=== PATIENT | female | born 1995 | race Caucasian/White ===

== ENCOUNTER → 2020-08-27 08:21 | Outpatient (CLI) | payer OTHER, SELFPAY ==
--- NOTE | 2020-08-27 08:25 | DI.US.S_ITS ---
PROCEDURE: US OB LIMITED INDICATIONS: Dates OUTSIDE/PRIOR DATING DATA: Last menstrual period (LMP): 05/30/20 . LMP-based estimated date of delivery (BROOKE): 03/06/21 First dating scan (date and location): 08/27/20 Estimated date of delivery (BROOKE) from first dating scan: 02/24/21 TECHNIQUE: Real-time scanning was performed of the fetus, with image documentation and biometric measurements. Endovaginal scanning: Not performed COMPARISON: None. FINDINGS: General: A single living intrauterine gestation is present. Presentation: Transverse, head maternal left. Placenta: Placental position is anterior , and there is marginal placental previa. heart rate: 160 beats per minute. biometrics: Biparietal diameter: 2.6 cm, 14 weeks 3 days Head circumference: 9.6 cm, 14 weeks 3 days Abdominal circumference: 8.1 cm, 14 weeks 3 days Femur length: 1.2 cm, 13 weeks 3 days Estimated gestational age from initial scan: not applicable. Composite gestational age from present scan: 14 weeks 1 day Measurement variability for biometric dating: +/- 7 days from 14 weeks to 15 weeks 6 days gestation, +/- 10 days from 16 weeks to 21 weeks 6 days gestation, +/- 2 weeks from 22 weeks to 27 weeks 6 days gestation, +/- 3 weeks for 28 weeks gestation or later. weight reference: 4500 g or EFW >90/95% is considered macrosomia or large for gestational age. EFW <10% is small for gestational age. EFW 5% or less is considered intra-uterine growth restriction. Other: Lateral ventricles appear prominent measuring 8.5 mm, although technically unclear significance. Recommend follow-up on 20 week anatomy survey ultrasound examination. IMPRESSION: Single living intrauterine fetus in transverse presentation. Gestational age of 14 weeks and 1 day by today's ultrasound measurements, ultrasound BROOKE of 02/24/21 which was concordant with the reported LMP. Marginal placenta previa. Recommend follow-up Dictated by: David Washington M.D. on 08/27/2020 at 9:36 Approved by: David Washington M.D. on 08/27/2020 at 9:42
[2020-08-27 13:29] LABS: Add Manual Diff / Slide Review NO; Basophils Absolute Auto 0 /uL (0-100); Basophils Percent Auto 0.2 % (0-2); Eosinophils Absolute Auto 0 /uL (0-450); Eosinophils Percent Auto 0.6 % (2-4); Hemoglobin 11.7 g/dL (12.0-16.0); Lymphocytes Absolute Auto 1300 /uL (1100-4500); Lymphocytes Percent Auto 21.6 % (25-40); Mean Corpuscular HGB Conc 34.4 % (30-36); Mean Corpuscular Hemoglobin 28.9 PG (26-34); Mean Corpuscular Volume 84.2 fL (80-100); Monocytes Absolute Auto 700 /uL (0-900); Monocytes Percent Auto 11.1 % (3-14); Neutrophils Absolute Auto 4100 /uL (1500-7000); Neutrophils Percent Auto 66.5 % (50-75); Platelet Count 223 X10^3/uL (150-400); Red Blood Cell Count 4.03 X10^6/uL (4.0-5.2); Red Cell Distribution Width 15.4 % (11.6-14.8); White Blood Cell Count 6.2 X10^3/uL (4.5-11.0)
[2020-08-27 13:37] LABS: Appearance Urine UA CLEAR; Bilirubin Urine UA NEGATIVE (NEGATIVE); Color Urine UA YELLOW; Glucose Urine UA NEGATIVE (Negative); Ketones Urine UA NEGATIVE (NEGATIVE); Leukocyte Esterase Urine UA NEGATIVE (NEGATIVE); Nitrite Urine UA NEGATIVE (Negative); Occult Blood Urine UA NEGATIVE (Negative); Protein Urine UA NEGATIVE (Negative)
[2020-08-27 13:40] LABS: pH Urine UA 7.5 (4.5-8.0)
[2020-08-27 15:50] LABS: Hepatitis B Surface Antigen NEGATIVE s/c (NEGATIVE)
[2020-08-27 16:04] LABS: HIV 1 & 2 Ab/Ag 4th Gen Combo NEGATIVE (NEGATIVE); Hep C Virus Ab w/Reflex Quant NEGATIVE s/c (NEGATIVE)
[2020-08-28 06:36] LABS: RPR Screen Non Reactive (Non Reactive)
[2020-08-28 08:12] LABS: Varicella IgG Antibody <135 index (Immune >165)
[2020-08-29 00:07] LABS: Chlamydia trachomatis NAA Negative (Negative); Neisseria gonorrhoeae NAA Negative (Negative)
== END ==
PROVIDERS: Referring Provider Family Medicine; Visit Provider Family Medicine
DX: Z34.82 Encounter for supervision of other normal pregnancy, second trimester (principal); Z3A.14 14 weeks gestation of pregnancy
CPT/HCPCS: 36415; 76815; 80055; 81003; 86787; 86803; 86850; 86900; 86901; 87086; 87389; 87491; 87591

== ENCOUNTER → 2020-09-28 09:09 | Outpatient (CLI) | payer OTHER, SELFPAY ==
[2020-09-30 18:39] LABS: AFP, Serum 118.8 ng/mL (.); Calc Gestational Age Ultrasound (.); Estriol, Free 1.09 ng/mL (.); Inhibin A, Dimeric 144.72 pg/mL (.); Inhibin A, MoM 0.84 (.); Maternal Ethnicity Caucasian (.); Maternal Weight 136 lbs (.); Number of Fetuses No (.); OSBR Risk 1 IN 453 (.); Results Report (.); Test Results *Screen Negative* (.); hCG, MoM 1.24 (.); hCG, Serum 34839 mIU/mL (.)
== END ==
PROVIDERS: Referring Provider Family Medicine; Visit Provider Family Medicine
DX: Z34.82 Encounter for supervision of other normal pregnancy, second trimester (principal); Z3A.18 18 weeks gestation of pregnancy
CPT/HCPCS: 36415; 82105; 82677; 84702; 86336

== ENCOUNTER → 2020-11-02 11:57 | Outpatient (CLI) | payer OTHER, SELFPAY ==
--- NOTE | 2020-11-02 11:58 | DI.US.S_ITS ---
PROCEDURE: US OB >= 14 WEEKS FETUS INDICATIONS: ANATOMIC SURVEY OUTSIDE/PRIOR DATING DATA: Last menstrual period (LMP): 05/30/2020 LMP-based estimated date of delivery (BROOKE): 03/06/2021 First dating scan (date and location): [facility], 08/27/2020 Estimated date of delivery (BROOKE) from first dating scan: 02/24/2021. TECHNIQUE: Real-time scanning was performed of the fetus, with image documentation and biometric measurements. COMPARISON: [facility], OB LIMITED, 08/27/2020, 8:34. FINDINGS: General: A single live intrauterine gestation is present. Presentation: Transverse. Placenta: Placental position is anterior , without previa. Amniotic fluid index: 18.9 cm, normal range is 5-24 cm. heart rate: 139 beats per minute. Maternal cervical canal: 3.1 cm long. Normal lower limit is 2.5 cm. biometrics: Biparietal diameter: 6 cm equals 24 weeks 3 days Head circumference: 22.5 cm equals 24 weeks 4 days Abdominal circumference: 18.8 cm equals 23 weeks 4 days Femur length: 4 cm equals 22 weeks 6 days Estimated gestational age from initial scan: 23 weeks 5 days Composite gestational age from present scan: 23 weeks 6 days Estimated weight and percentile: 591 g, 28th percentile Measurement variability for biometric dating: +/- 7 days from 14 weeks to 15 weeks 6 days gestation, +/- 10 days from 16 weeks to 21 weeks 6 days gestation, +/- 2 weeks from 22 weeks to 27 weeks 6 days gestation, +/- 3 weeks for 28 weeks gestation or later. weight reference: 4500 g or EFW >90/95% is considered macrosomia or large for gestational age. EFW <10% is small for gestational age. EFW 5% or less is considered intra-uterine growth restriction. Anatomic survey: Neuro: Ventricles are non-dilated at less than 10 mm. Cisterna magna is normal at 3-11 mm. Cerebellum is normal in size and morphology. Nuchal skin fold: Normal at less than 6 mm between 14-21 weeks gestational age. Face: Nose and lips, facial profile are normal. Spine: No evidence for spina bifida. Heart: 4-chambered heart is present, with normal ventricular outflow tracts. Diaphragm: Diaphragm is intact. Stomach: Left-sided stomach is present. Kidneys: No hydronephrosis. Normal is less than 5 mm in 2nd trimester, less than 7 mm in 3rd trimester. Cord: 3-vessel cord has orthotopic insertion. Bladder: Normal in size. Extremities: All 4 extremities identified. IMPRESSION: A single live intrauterine is seen. No anatomic abnormalities are identified. Normal interval growth when compared to the prior ultrasound examination. Dictated by: Maurisio Almanza M.D. on 11/02/2020 at 15:13 Approved by: Maurisio Almanza M.D. on 11/02/2020 at 15:16
== END ==
PROVIDERS: PCP Family Medicine; Referring Provider Family Medicine; Visit Provider Family Medicine
DX: Z34.82 Encounter for supervision of other normal pregnancy, second trimester (principal); Z3A.23 23 weeks gestation of pregnancy
CPT/HCPCS: 76811

== ENCOUNTER → 2020-12-04 08:57 | Outpatient (CLI) | payer OTHER, SELFPAY ==
[2020-12-04 10:19] LABS: Hematocrit 29.1 % (36-46); Hemoglobin 9.5 g/dL (12.0-16.0)
[2020-12-04 10:45] LABS: GTT (PREG) 1 Hour PP 50gm Dose 105 mg/dL (76-139)
== END ==
PROVIDERS: PCP Family Medicine; Referring Provider Family Medicine; Visit Provider Family Medicine
DX: Z34.82 Encounter for supervision of other normal pregnancy, second trimester (principal); Z3A.24 24 weeks gestation of pregnancy
CPT/HCPCS: 36415; 82950; 85014; 85018; 86850

== ENCOUNTER → 2021-01-28 09:17 | Outpatient (CLI) | payer OTHER, SELFPAY ==
[2021-01-29 08:22] LABS: Strep Grp B PCR NEG for Grp B Strep
== END ==
PROVIDERS: PCP Family Medicine; Visit Provider Family Medicine
DX: Z34.83 Encounter for supervision of other normal pregnancy, third trimester (principal); Z3A.36 36 weeks gestation of pregnancy
CPT/HCPCS: 87653

== ENCOUNTER 2021-02-13 04:08 | Inpatient (IN) | payer OTHER, SELFPAY ==
[2021-02-13 05:24] VITALS: BP 121/59
[2021-02-13 06:35] LABS: COVID19 - ADMIT (NP swab/PCR) Negative (Negative)
[2021-02-13 06:54] LABS: Add Manual Diff / Slide Review NO; Basophils Absolute Auto 0 /uL (0-100); Basophils Percent Auto 0.3 % (0-2); Eosinophils Absolute Auto 0 /uL (0-450); Eosinophils Percent Auto 0.2 % (2-4); Hematocrit 33.7 % (36-46); Hemoglobin 11.2 g/dL (12.0-16.0); Lymphocytes Absolute Auto 1800 /uL (1100-4500); Lymphocytes Percent Auto 22.9 % (25-40); Mean Corpuscular HGB Conc 33.1 % (30-36); Mean Corpuscular Hemoglobin 25.9 PG (26-34); Mean Corpuscular Volume 78.3 fL (80-100); Monocytes Absolute Auto 900 /uL (0-900); Monocytes Percent Auto 10.9 % (3-14); Neutrophils Absolute Auto 5300 /uL (1500-7000); Neutrophils Percent Auto 65.7 % (50-75); Platelet Count 222 X10^3/uL (150-400); Red Cell Distribution Width 16.5 % (11.6-14.8); White Blood Cell Count 8.1 X10^3/uL (4.5-11.0)
--- NOTE | 2021-02-13 07:56 | PM.OBHP.1 ---
OB HPI Date/Time Date of admission: 02/13/21 Date Patient Seen: 02/13/21 Time Patient Seen: 07:57 History of Present Condition Chief complaint: MATERNITY Narrative: Lionel Butler is a 25 year old at 38w3d with BROOKE of 02/24/21 per first trimester ultrasound. She presents with active labor. Contractions started this morning at approximately 1:30 a.m., irregular. At approximately 3:00 a.m., contractions were 5 minutes apart and she presented for labor check 2 hours later. She was tanya every 2-3 minutes at that time. 30 minutes ago, received epidural and is now comfortable, contractions have spaced out a bit. Her course has been complicated by iron deficiency anemia treated with ferrous gluconate 324 mg p.o. daily. She is Rh negative and received RhoGAM at 28 weeks. Reports that she received RhoGAM with her last as well. Antibody was negative on 08/27/2020 and 12/04/2020. Admission labs reveal a positive antibody today, Anti-D. LABS/IMAGING: ABO A negative, antibody negative on 08/27/2020, 12/04/2020; positive today. Rubella non-immune. Hepatitis-B surface antigen negative. HIV, HSV 1 and 2 negative. GC/chlamydia negative. VDRL negative. Varicella titer non-immune. Pap smear 2017, within normal limits per patient. Urine culture negative on 08/27/20. Hemoglobin/hematocrit 11.7/34.0 on 08/27/20. Repeat hemoglobin/hematocrit 9.5/29.1 on 12/04/20. 1 hour Glucola negative on 12/04/20. GBS negative on 01/28/21. Quad screen negative, 09/28/20. Dating US: 08/27/2020, BROOKE 02/24/2021 Anatomy Scan: 11/02/2020, within normal limits. EFW 591 g, 28th percentile OBSTETRIC HISTORY: G1: 11/23/2017, at 39w0d, viable female, 6 lb 12 oz, no complications. GYNECOLOGICAL HISTORY: None PAST MEDICAL HISTORY: None PAST SURGICAL HISTORY: [place] teeth FAMILY HISTORY: Breast cancer, grandmother SOCIAL HISTORY: , recently moved from [place]. /FOBT, Yusuf, involved and supportive. No alcohol, tobacco, or illicit drugs. Evaluation Evaluation Baseline heart rate: 120 Variability: Moderate (11-25) monitor accelerations: Present Monitor Decelerations: Absent Contraction Frequency (minutes): 5 Uterine Contraction Intensity: Moderate Cervical dilation (cm): 4 Cervical effacement (%): 90 station: -3 [facility] Medical History (Updated 08/25/20 @ 11:01 by Tameka Pinto RN) (spontaneous vaginal delivery) (~11/23/17) Surgical History (Updated 08/25/20 @ 10:24 by Tameka Pinto RN) [place] teeth extracted (~2019) Family History (Updated 08/25/20 @ 10:27 by Tameka Pinto RN) Mother No problems noted. Father No problems noted. Grandmother Cancer Breast cancer Grandfather No problems noted. Grandmother No problems noted. Grandfather No problems noted. 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: [employer] richard needs: No Smoking Status: Never smoker second hand exposure: No alcohol intake: former (pre- : rare use) substance use type: does not use Meds Home Medications and Allergies Home Medications Medication Instructions Recorded Confirmed Type prenat.vits,meghana,rha-[id number]-[id number] 1 tab PO DAILY 08/25/20 02/13/21 History ferrous gluconate 324 mg (38 mg 324 mg PO DAILY #30 tab 12/04/20 02/13/21 Rx iron) tablet Allergies Allergy/AdvReac Type Severity Reaction Status Date / Time Penicillins Allergy Intermediate Hives Verified 02/13/21 05:26 Review of Systems Review of Systems Narrative: All remaining ROS were reviewed and negative except as addressed. Exam Vital Signs (past 8 hours): - 02/13/21 05:24 Blood Pressure 121/59 L Narrative Exam Narrative: General: NAD Skin: Color unremarkable, no rash nor lesions HEENT: Neck supple with midline trachea Lungs: CTAB Heart: Normal rate, and regular rhythm, S1, S2 normal, no murmur, click, rub or gallop Abdomen: Gravid, soft, non-tender Extremities: No cord, no edema, no cyanosis Pelvis: Normal female external genitalia Presentation: vertex Cervix: 4/90/-3/posterior/soft, membranes intact Monitoring: Variability: Moderate Baseline: 120s Accelerations: Present Decelerations: Absent Contractions: Every 5 minutes Strength: Moderate Objective Labs Result Diagrams: 02/13/21 06:40 Labs: Laboratory Results - last 24 hr 02/13/21 02/13/21 02/13/21 05:20 06:40 06:40 WBC 8.1 RBC 4.30 Hgb 11.2 L Hct 33.7 L MCV 78.3 L MCH 25.9 L MCHC 33.1 RDW 16.5 H Plt Count 222 Neut % (Auto) 65.7 Lymph % (Auto) 22.9 L [place] % (Auto) 10.9 Eos % (Auto) 0.2 L Baso % (Auto) 0.3 Neut # (Auto) 5300 Lymph # (Auto) 1800 [place] # (Auto) 900 Eos # (Auto) 0 Baso # (Auto) 0 SARS-CoV-2 (PCR) Negative Blood Type A Negative Antibody Screen Positive Assessment and Plan Assessment and Plan Assessment and Plan narrative: 1. IUP at 38w3d 2. 3. Active Labor 4. 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 Iron deficiency anemia 6. Rubella nonimmune 7. Varicella nonimmune Plan: Admit to Labor and delivery with routine orders. Anticipate vaginal delivery. Will start Pitocin augmentation as contractions have spaced out after placement of epidural. Anticipate AROM at next cervical check when cervix becomes more midline. Patient has a positive antibody today which may be due to recent RhoGAM administration, will check antibody titer and genotype now. Reassuring that heart rate is now category 1. Will continue to watch closely for signs of anemia including a sinusoidal pattern. Will plan for extra support at time of delivery with any concerning trends. Plan for stat ABO and YNES of at time of delivery secondary to increased risk of hemolytic disease of the . Will follow bilirubin levels closely starting at 12 hours. Have consulted with pharmaceutical analyst at [facility] and they concur with this plan. Questions answered, appropriate consents will be signed.
[2021-02-13] MEDS: OXYTOCIN PREMIX 30 UNIT/500 ML PLAST..BAG IV (09:09)
[2021-02-13] MEDS: LACTATED RINGERS 1,000 ML 100 ML IV (09:09)
--- NOTE | 2021-02-13 10:40 | PM.OBPNLAB ---
Date/Time Date Patient Seen: 02/13/21 Time Patient Seen: 10:40 Pain Control Pain control: epidural Comments: Doing well, epidural working well. Feeling baby move. Pelvic Exam Dilation (cm): 4 Effacement (%): 90 station: -3 Amniotic membrane status: Ruptured Comments: clear fluid with slight pink tinge Contractions Monitor mode: External Pitocin rate (mU/min): 5 Contraction frequency (min): 3 Contraction duration (min): 1 Contraction pattern: Regular Contraction intensity: Moderate Status Heart Rate Baseline: 125 Monitor Accelerations: Present Monitor Decelerations: Absent Monitor Variability: Moderate Assessment and Plan Assessment: active labor Plan: continuous present management
--- NOTE | 2021-02-13 12:48 | PM.OBPNLAB ---
Date/Time Date Patient Seen: 02/13/21 Time Patient Seen: 12:48 Pain Control Pain control: epidural Comments: Patient just had her epidural bolused, feeling much more comfortable. Pitocin at 5 units. Pelvic Exam Dilation (cm): 9.5 Effacement (%): 100 station: +1 Amniotic membrane status: Ruptured Contractions Monitor mode: External Contraction frequency (min): 2 Contraction pattern: Regular Contraction intensity: Moderate Status Heart Rate Baseline: 110 Monitor Accelerations: Present Monitor Decelerations: Late (during epidural bolus, now resolved) and Variable (with good recovery) Monitor Variability: Moderate Assessment and Plan Assessment: active labor Plan: continuous present management Comments: Anticipate , will start pushing in the next 30 minutes.
--- NOTE | 2021-02-13 14:32 | PM.OBPRVD ---
Labor & Delivery Delivery date: 02/13/21 Induction method: none Delivery augmentation: rupture of membranes and pitocin Delivery monitor: external FHT Route of delivery: Episiotomy description: None L&D Laceration Description: Perineal - 1st Degree (did not require repair) Estimated blood loss (mL): 200 Anesthesia Type: Epidural Complications: None Narrative: On 02/13/21, this 25 year old , GBS negative female under epidural anesthesia delivered a viable male infant with unknown weight and scores of 8/9. Delivery was via normal spontaneous vaginal delivery at 2:12 p.m. Nuchal cord x 1 was reduced prior to delivery of anterior shoulder. Infant handed to mother in attendance. Cord clamped and cut after 1 minute. Blood sent for analysis. Intact placenta with three-vessel cord was delivered spontaneously at 2:29 p.m. IV pitocin was running throughout the first and second stage and was bolused prior to the third stage of labor. Uterus, cervix, vagina, and rectum explored and found to be intact except for a very minor first-degree perineal laceration that did not require repair. Estimated blood loss 200 cc. Patient remained in the delivery room in stable condition. remained in the delivery room in stable condition.
[2021-02-13] MEDS: DERMOPLAST SPRAY 20% 60 ML 1 SPRAY TOP (19:51)
[2021-02-13] MEDS: DOCUSATE 100 MG CAPSULE PO (19:52)
[2021-02-13] MEDS: IBUPROFEN 600 MG TABLET PO (19:52)
[2021-02-13] MEDS: LANOLIN OINT 7 GM 1 APPLIC TOP (21:46)
[2021-02-14] MEDS: IBUPROFEN 600 MG TABLET PO ×2 (02:54→10:26)
[2021-02-14] MEDS: ACETAMINOPHEN 325 MG TABLET 650 MG PO ×2 (05:06→10:27)
--- NOTE | 2021-02-14 07:29 | P.DS_ITS ---
Discharge Providers Provider Date of admission: 02/13/21 04:08 Discharge Date: 02/14/21 Primary care physician: Santy Jha MD Consults: 02/14/21 14:47 Consult to Phosphoric Acid Supervisor Routine Comment: Discharge provider: Vane Chilel MD Summary Hospital Course Date Patient Seen: 02/14/21 Time Patient Seen: 07:29 Diagnoses: 1. 25 yo 2. Status post at 38w3d 4.? 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 Iron deficiency anemia 6.? Rubella nonimmune 7.? Varicella nonimmune Hospital Course: Unremarkable. Mother is well. Tolerating full diet with no nausea vomiting. Ambulating well. Lochia less than menses. On day of discharge, she is afebrile with stable vital signs throughout. Mother is Rh n egative and antibody was positive at time of admission; previously negative x 2 during . Follow-up titer showed this level to be less than 1, likely secondary to RhoGAM administration in her 3rd trimester. Genotype testing is pending. Nursing reports TDaP administered prenatally. MMR and RhoGAM will be administered prior to discharge. Follow-up with Dr. Jha scheduled in 6 weeks. Time Spent with Patient Time attestation: Total time spent providing and/or coordinating discharge services: Objective Labs Result Diagrams: 02/14/21 08:45 Labs: Laboratory Results - last 24 hr 02/13/21 06:40 Blood Type A Negative Antibody Screen Positive Antibody Titer <1 Antibody Identification Anti-D Exam Narrative Exam Narrative: General: NAD Skin: Color unremarkable, no rash nor lesions HEENT: Neck supple with midline trachea Lungs: CTAB Heart: Normal rate and regular rhythm, S1, S2 normal, no murmurs, click, rub or gallop Abdomen: FF, U-1, soft, non-tender, +BS Extremities: No edema, no cyanosis Discharge Plan Discharge Plan Patient Disposition: Home Discharge orders & Medications Prescriptions: New ferrous sulfate 325 mg (65 mg iron) Tablet 325 mg PO DAILY Qty: 60 RF: 1 docusate sodium 100 mg Capsule 100 mg PO BID PRN (Reason: constipation) Qty: 30 RF: 1 Prenatabs Rx 29 mg iron- 1 mg Tablet 1 tab PO DAILY Qty: 90 RF: 3 ibuprofen 600 mg Tablet 600 mg PO Q6HR PRN (Reason: Pain, Mild (1-3)) Qty: 60 RF: 1 Continued ferrous gluconate 324 mg (38 mg iron) tablet 324 mg PO DAILY Qty: 30 RF: 3 prenat.vits,meghana,ulh-tafl-[id number] Tablet 1 tab PO DAILY RF: 0 Follow up/Referrals: Santy Jha MD [Primary Care Provider] - Diet/Activity/Treatments Diet: Diet as Tolerated Activity: 1. Routine care 2. No driving for 2 weeks. 3. Pelvic rest for 6 weeks. 4. Call or return for uncontrolled pain, fever, intractable nausea or vomiting, trouble with urination, heavy vaginal bleeding greater than 1 pad per hour, suicidal/homicidal thoughts, signs or symptoms of infection, or any other concerns. Skin/Wound/Dressing Care Report to your healthcare provider any signs of infection, such as:: chills, fever, increased pain and unusual drainage Visit Report/Discharge Packet Instructions: DI for Labor and Delivery, Vaginal Discharge Data Primary Care Provider: Santy Jha
[2021-02-14 08:55] LABS: Hematocrit 30.6 % (36-46)
[2021-02-14] MEDS: LANOLIN OINT 7 GM 1 APPLIC TOP (10:24)
[2021-02-14] MEDS: DOCUSATE 100 MG CAPSULE PO (10:26)
[2021-02-14] MEDS: PRENATAL VIT,CALC/IRON/FOLIC 1 TABLET 1 TAB PO (10:26)
[2021-02-14] MEDS: FERROUS SULFATE 325 MG TABLET PO (10:26)
[2021-02-14 12:03] VITALS: BP 121/59; PULSE 79; RESP 16; TEMP 37.1
[2021-02-14] MEDS: MEASLES,MUMPS,RUBELLA VACC/PF 0.5 ML VIAL SUBCUT (12:32)
[2021-02-14] MEDS: RHO(D) IMMUNE GLOBULIN 1,500 UNIT SYRINGE 1500 UNIT IM (12:34)
== END 2021-02-14 13:30 | disposition home or self-care (01) | DRG 805 ==
PROVIDERS: Student in an Organized Health Care Education/Training Program; Admitting Provider Obstetrics & Gynecology; PCP Family Medicine; Referring Provider Obstetrics & Gynecology; Visit Provider Obstetrics & Gynecology
DX: O99.02 Anemia complicating childbirth (principal); O60.14X0 Preterm labor third trimester with preterm delivery third trimester, not applicable or unspecified; Z37.0 Single live birth; D50.9 Iron deficiency anemia, unspecified; Z3A.38 38 weeks gestation of pregnancy; O69.81X0 Labor and delivery complicated by cord around neck, without compression, not applicable or unspecified; Z20.822 Contact with and (suspected) exposure to COVID-19
CPT/HCPCS: 01967; 36415; 59050; 85014; 85018; 85025; 85461; 86850; 86870; 86886; 86900; 86901; 86906; 87635; C9803; G0379; J2590; J2790